=== PATIENT | female | born 1965 | race Caucasian/White ===

== ENCOUNTER 2024-09-26 14:18 | Emergency (ER) | payer OTHER, BC ==
[2024-09-26 14:31] VITALS: BP 150/82; PULSE 83; RESP 18; TEMP 98.1; BMI 31.7
[2024-09-26] MEDS ORDERED: IBUPROFEN 600 MG TABLET (FP) PO ONE (14:59)
[2024-09-26] MEDS: IBUPROFEN 600 MG TABLET (FP) PO ONE (15:01)
== END 2024-09-26 17:03 | disposition home or self-care (01) ==
LOC: JER 14:18
DX: S42.291A Other displaced fracture of upper end of right humerus, initial encounter for closed fracture (principal); M25.462 Effusion, left knee; M25.562 Pain in left knee; W01.0XXA Fall on same level from slipping, tripping and stumbling without subsequent striking against object, initial encounter
CPT/HCPCS: 73030-TC-RT-FY; 73060-TC-RT-FY; 73562-TC-LT-FY; 99284-25